=== PATIENT | female | born 1980 | race Two or more races ===

== ENCOUNTER 2019-06-07 14:14 | Emergency (ER) | payer SELFPAY ==
[~2019-06-07] VITALS: Ht 167.6 cm; Wt 81.6 kg
[2019-06-07 14:26] VITALS: BP 140/80
== END 2019-06-07 15:02 | disposition left against medical advice (07) ==
LOC: EDBD 14:14 → ER 14:40
DX: R07.89 Other chest pain (principal); M25.532 Pain in left wrist; M25.531 Pain in right wrist; Z53.21 Procedure and treatment not carried out due to patient leaving prior to being seen by health care provider
CPT/HCPCS: 93005